=== PATIENT | female | born 1975 | race Caucasian/White ===

== ENCOUNTER 2024-04-14 14:01 | Emergency (ER) | payer SELFPAY ==
[2024-04-14 14:03] VITALS: BP 100/72
[2024-04-14 14:43] LABS: % Basophils 0.1 % (0-2); % Immature Granulocytes 0.4 % (0-0.5); % Lymphocytes 13.4 % (20.5-51.1); % Monocytes 9.7 % (1.7-9.3); % Neutrophils 76.4 % (42.2-75.2); Absolute Monocytes 0.7 10^3/uL (0.1-0.6); Absolute Neutrophils 5.4 10^3/uL (1.4-6.5); Hematocrit 35.8 % (37.0-47.0); Hemoglobin 12.4 g/dL (12.0-16.0); Mean Corp Hgb Conc. 34.6 g/dL (33.0-37.0); Mean Corpuscular Hgb 29.8 pg (27.0-31.0); Mean Corpuscular Volume 86.1 fL (81.0-99.0); Mean Platelet Volume 11.3 fL (7.4-10.4); Nucleated Red Blood Cells % 0 %; Platelet Count 198 10^3/uL (130-400); Red Blood Cell Count 4.16 10^6/uL (4.20-5.40); Red Cell Dist. Width 12.3 % (11.5-14.5); White Blood Cell Count 7.1 10^3/uL (4.8-10.8)
[2024-04-14 14:48] LABS: Urine Albumin Negative (Neg - Trace); Urine Bilirubin Negative (Negative); Urine Character Clear (Clear); Urine Color Yellow; Urine Glucose Negative (Negative); Urine Ketone Trace (Negative); Urine Leukocyte Negative (Negative); Urine Nitrite Negative (Negative); Urine Occult Blood Negative (Negative); Urine Urobilinogen Negative (Neg - 1+); Urine pH 6.5 (5.0-9.0)
[2024-04-14 14:58] LABS: ALT (SGPT) 16 U/L (0-35); AST (SGOT) 27 U/L (14-36); Albumin 4.4 g/dl (3.5-5.0); Blood Urea Nitrogen 11 mg/dl (7-17); Carbon Dioxide 27 mmol/L (22-30); Glucose 96 mg/dl (70-99); Potassium 3.5 mmol/L (3.5-5.1); Total Bilirubin 0.5 mg/dl (0.2-1.3); Total Protein 6.8 g/dl (6.3-8.2); eGFR > 60.00
[2024-04-14 14:59] LABS: Alkaline Phosphatase 58 U/L (38-126); Chloride 98 mmol/L (98-107); Lactic Acid 0.9 mmol/L (0.7-2.0); Sodium 133 mmol/L (135-145)
[2024-04-14 15:04] LABS: COVID-19 Antigen Positive (Negative)
--- NOTE | 2024-04-14 16:12 | ED.GENMED ---
History of Present Illness
General
Chief Complaint: Fever
Source: patient
Exam Limitations: none
Time Seen by Provider: 04/14/24 15:53
Nursing documentation reviewed up to this point in time: agreed with
History of Present Illness
History of Present Illness:
Patient to ED with complaint of high fevers, sorethroat, cough. Symptoms started on saturday. No n/v/d. Taking advil with temporary reduction in temp. Brought to ED by family.
Past History
Past History
ED Past Medical History: None
ED Past Surgical History: Appendectomy, Tonsilectomy and Other (Mohs sx, eye surgery, wisdom teeth, sinus surgery.)
Review of Systems
Review of Systems
Allergies reviewed?: Yes
All Other Systems: ROS reviewed and negative except as documented in HPI and ROS
Constitutional: Reports fever and fatigue
EENT: Reports sore throat
Respiratory: Reports cough
Cardiac: Reports no symptoms
ABD/GI: Reports no symptoms
: Reports no symptoms
Musculoskeletal: Reports no symptoms
Skin: Reports no symptoms
Neurological: Reports headache and weakness
Psychiatric: Reports no symptoms
Phy Exam
General Physical Exam
General Presentation: mild distress
General age: appears stated age
General Skin: warm and dry
General Habitus: normal
General Mental: alert
ENT Exam
ENT Exam: TM's normal, neck supple, pharyngeal erythema and swallowing well
Cardiovascular Exam
Cardiovascular Exam: regular rate/rhythm and no edema
Pulmonary Exam
Pulmonary Exam: lungs clear and no respiratory distress
Neurological Exam
Neurological Exam: alert and oriented x3
Musculoskeletal Exam
Musculoskeletal Exam: full ROM and neuro vasc intact
Skin Exam
Skin Exam: normal color, warm/dry and no rash
Psychiatric Exam
Psychiatric Exam: normal mood/affect
Course
Orders/Labs/Results
Orders:
Orders
04/14/24 14:08
CXR2 [CR Chest - 2 Views ] Urgent
Comment:
Reason For Exam: fever/cough
04/14/24 14:32
COVID-19 Antigen Urgent
Source: Nasal Swab
Complete Blood Count/With Diff Urgent
Comprehensive Metabolic Panel Urgent
Lactic Acid Urgent
Influenza A+B Rapid Molecular Urgent
NATASHA Source: Nasal Swab
Specimen Description:
Date Specimen was Collected: 04/14/24
Time Specimen was Collected: 14:09
04/14/24 14:36
Urinalysis Reflex To Culture Urgent
Date Specimen was Collected: 04/14/24
Time Specimen was Collected: 14:09
04/14/24 16:08
0.9% Sodium Chloride 1000 ml [Nss] 1,000 ml IV BOLUS
04/14/24 16:11
Ibuprofen [Motrin] 600 mg PO NOW STA
04/14/24 16:15
Ibuprofen [Motrin] 600 mg PO NOW STA
Abnormal Lab Results
04/14/24 04/14/24
14:32 14:36
RBC 4.16 L 10^6/uL
(4.20-5.40)
Hct 35.8 L %
(37.0-47.0)
MPV 11.3 H fL
(7.4-10.4)
Absolute Lymphs (auto) 1.0 L 10^3/uL
(1.2-3.4)
Absolute Monos (auto) 0.7 H 10^3/uL
(0.1-0.6)
Neutrophils % 76.4 H %
(42.2-75.2)
Lymphocytes % 13.4 L %
(20.5-51.1)
Monocytes % 9.7 H %
(1.7-9.3)
Sodium 133 L mmol/L
(135-145)
Urine Ketones Trace A
(Negative)
SARS-CoV-2 Antigen Positive A
(Negative)
04/14/24 14:32
04/14/24 14:32
Vital Signs
Initial and Last Documented VS:
Initial Vital Signs
Temp Pulse Resp BP Pulse Ox
99.8 F 97 16 100/72 98
04/14/24 14:03 04/14/24 14:03 04/14/24 14:03 04/14/24 14:03 04/14/24 14:03
Last Documented Vital Signs
Temp Pulse Resp BP Pulse Ox
100.4 F H 73 18 99/63 100
04/14/24 17:37 04/14/24 17:37 04/14/24 17:37 04/14/24 17:37 04/14/24 17:37
*Radiology
Radiology exam reviewed: radiology read reviewed
*Pulse Oximetry
Patient hypoxic: no
*Critical Care Note
Total Time (30-74mins, 75-104mins- exclusive of procedures): Not Applicable
Update Note
Update Note:
Covid pos. Labs, CXR reviewed. No concerning findings. She is discharged home, close followup with PCP. Given instructions on s/s to return to ED and she is agreeable to plan.
ED Attending Note
-
Portions of this chart may have been created with voice recognition software.� Occasional wrong word or��sound alike� substitutions may have occurred due to the inherent limitations of voice recognition software.
Discharge Plan
Departure
Patient Disposition: Home (Routine Discharge)
Date of Disposition: 04/14/24
Time of Disposition: 16:52
Patient with high blood pressure during this ER visit?: No
Condition: Good
Discharge Problem:
COVID-19
Instructions: Fever, Adult (DC), COVID-19 ED, Coronavirus Home Quarantine
Stand Alone Forms: Return to Work
Activity Restrictions/Additional Instructions:
Follow up with your healthcare provider .
Interventions
Interventions:
*Risk Screen - Suicide Last Done: 04/14/24 17:38
*General Assessment Last Done: 04/14/24 17:38
*Neglect/Abuse Screening Last Done: 04/14/24 17:38
ED- Fall Risk Assessment Last Done: 04/14/24 17:38
*ED COVID-19 Vaccine History Last Done: 04/14/24 14:03
*Nursing Disposition Last Done: 04/14/24 17:38
ED- Neurological Assessment Last Done: 04/14/24 17:37
ED-Skin Assessment Last Done: 04/14/24 17:37
Discharge Date and Time
Discharge Date/Time: 04/14/24 17:38
Print Language: TELUGU
[2024-04-14] MEDS: MOTRIN 600 MG PO (16:18)
[2024-04-14] MEDS: NSS 1000 IV (16:23)
[2024-04-14 17:37] VITALS: BP 99/63
== END 2024-04-14 17:38 | disposition home or self-care (01) ==
LOC: EMR 14:01
PROVIDERS: Emergency Medicine; EMERGENCY PHYSICIAN Student in an Organized Health Care Education/Training Program
DX: U07.1 COVID-19 (principal); Z90.49 Acquired absence of other specified parts of digestive tract
CPT/HCPCS: 99283; 96360; 71046; 80053; 81003; 83605; 85025; 87502; 87811

== ENCOUNTER → 2025-03-05 10:22 | Outpatient (REF) | payer OTHER, SELFPAY ==
[2025-03-05 10:54] LABS: % Basophils 0.7 % (0-2); % Eosinophils 2.2 % (0-6); % Immature Granulocytes 0.4 % (0-0.5); % Lymphocytes 26.4 % (20.5-51.1); % Monocytes 8.6 % (1.7-9.3); % Neutrophils 61.7 % (42.2-75.2); Absolute Eosinophils 0.1 10^3/uL (0-0.7); Absolute Lymphocytes 1.4 10^3/uL (1.2-3.4); Absolute Monocytes 0.5 10^3/uL (0.1-0.6); Absolute Neutrophils 3.3 10^3/uL (1.4-6.5); Hematocrit 39.2 % (37.0-47.0); Hemoglobin 13.1 g/dL (12.0-16.0); Mean Corp Hgb Conc. 33.4 g/dL (33.0-37.0); Mean Corpuscular Hgb 30.4 pg (27.0-31.0); Mean Platelet Volume 10.7 fL (7.4-10.4); Nucleated Red Blood Cells % 0 %; Platelet Count 254 10^3/uL (130-400); Red Blood Cell Count 4.31 10^6/uL (4.20-5.40); Red Cell Dist. Width 11.8 % (11.5-14.5); White Blood Cell Count 5.4 10^3/uL (4.8-10.8)
[2025-03-05 11:09] LABS: ALT (SGPT) 15 U/L (0-35); AST (SGOT) 20 U/L (14-36); Albumin 4.7 g/dl (3.5-5.0); Alkaline Phosphatase 63 U/L (38-126); Blood Urea Nitrogen 16 mg/dl (7-17); Calcium 9.4 mg/dl (8.4-10.2); Carbon Dioxide 28 mmol/L (22-30); Chloride 105 mmol/L (98-107); Glucose 87 mg/dl (70-99); Sodium 141 mmol/L (135-145); Total Bilirubin 0.4 mg/dl (0.2-1.3); Total Protein 7.4 g/dl (6.3-8.2); eGFR > 60.00
== END ==
LOC: RAD 10:22
PROVIDERS: ATTENDING PHYSICIAN Nurse Practitioner Adult Health
DX: R31.0 Gross hematuria (principal); R10.9 Unspecified abdominal pain
CPT/HCPCS: 36415; 74176; 80053; 85025

== ENCOUNTER 2025-08-30 06:24 | Day surgery (SDC) | payer OTHER, SELFPAY | END 2025-08-30 13:58 | disposition home or self-care (01) | LOC: GI 06:24 | PROVIDERS: ATTENDING PHYSICIAN Internal Medicine Gastroenterology | DX: K50.80 Crohn's disease of both small and large intestine without complications (principal); K44.9 Diaphragmatic hernia without obstruction or gangrene; K31.7 Polyp of stomach and duodenum; Z80.0 Family history of malignant neoplasm of digestive organs | CPT/HCPCS: 45378; 43239; 88305 ==